=== PATIENT | female | born 1990 | race Caucasian/White ===

== ENCOUNTER 2016-08-09 13:21 | Emergency (ER) | payer OTHER ==
[2016-08-09 15:07] VITALS: BP 138/87; PULSE 106; RESP 16; TEMP 99; O2SAT 95
--- NOTE | 2016-08-09 15:44 | UCPHY ---
H & P Patient Type: Established Smoking Status: Never smoked Time Seen by Provider: 08/09/16 15:38 HPI/ROS: CHIEF COMPLAINT: Sore throat times 24 hours HISTORY OF PRESENT ILLNESS: 25-year-old immunocompetent female with prior remote history of peritonsillar abscess complaining of 24 hours of sore throat bilaterally enlarged tonsils. No trismus no drooling. No change in voice. No fever no chills. No rash. No abdominal pain. No chest pain. No dyspnea. PRIMARY CARE PROVIDER: REVIEW OF SYSTEMS: A ten point review of systems was performed and is negative with the exception of the items mentioned in the HPI PAST MEDICAL & SURGICAL HISTORY: Remote history of peritonsillar abscess SOCIAL HISTORY: Nonsmoker PHYSICAL EXAM (Prior to examination, patient consented to physical exam, hands were washed and my usual and customary physical exam procedures followed) 1) GENERAL: Well-developed, well-nourished, alert and oriented. Appears nontoxic 2) HEAD: Normocephalic, atraumatic 3) HEENT: Pupils equal, round, reactive to light bilaterally. Sclera anicteric. Bilateral tonsils are enlarged with white exudate bilaterally. Tonsils are symmetrical with no pointing of the uvula. No trismus no drooling. Floor of mouth soft. Ears bilaterally with normal tympanic membranes. 4) NECK: Full range of motion, no meningeal signs. Positive submandibular adenopathy bilaterally 5) LUNGS: Clear auscultation bilaterally, no wheezes, no rhonchi, no retractions. 6) HEART: Regular rate and rhythm, no murmur, no heave, no gallop. 7) ABDOMEN: No guarding, no rebound, no focal tenderness, negative McBurney's, 8) MUSCULOSKELETAL: Moving all extremities, no focal areas of tenderness, no obvious trauma. No peripheral edema or discoloration. 9) BACK: No CVA tenderness 10) SKIN: No rash, no petechiae. 11) Psychiatric: Patient is oriented X 3, there is no agitation. DIFFERENTIAL DIAGNOSIS: In no particular order including but not limited to peritonsillar abscess, strep pharyngitis, meningitis, retropharyngeal abscess or phlegmon (Yolanda,D Shanta) Constitutional: Initial Vital Signs Temperature (C) 37.2 C 08/09/16 15:04 Heart Rate 106 H 08/09/16 15:04 Respiratory Rate 16 08/09/16 15:04 Blood Pressure 138/87 H 08/09/16 15:04 O2 Sat (%) 95 08/09/16 15:04 O2 Delivery Mode Room Air Allergies/Adverse Reactions: No Known Allergies Allergy (Verified 08/09/16 15:03) Home Medications: Medication Instructions Recorded Penicillin V Potassium [Pen Vk] 500 mg PO Q6 10 Days 08/09/16 methylPREDNISolone [Medrol Dose 4 mg PO DAILY #1 ea 08/09/16 Raulito] MDM/Departure - MDM ED Course/Re-evaluation: I do not think this patient has peritonsillar abscess. High clinical suspicion for strep pharyngitis. Recommended empiric treatment. No prior adverse reaction to steroids. Started on Medrol Dosepak, antibiotic, follow up with ENT on Thursday (today is Thursday). Usual and customary strict return precautions provided. She feels comfortable being discharged. (Sariah Guerrero) Urgent Care PA supervision Physician documentation: The patient was evaluated and managed by the physician assistant federal public defender. My co- signature indicates that I have reviewed this chart and I agree with the findings and plan of care as documented. I am the secondary supervising physician. (Devon Latham) - Depart Disposition: Home, Routine, Self-Care Clinical Impression: Strep pharyngitis Instructions: Strep Throat (ED) Additional Instructions: Return to the ER immediately if you cannot swallow, have drooling, fevers, neck stiffness, cannot open your jaw, or any other symptoms that concern you. Prescriptions: methylPREDNISolone [Medrol Dose Raulito] 4 mg PO DAILY #1 ea Penicillin V Potassium [Pen Vk] 500 mg PO Q6 10 Days Referrals: Magan Mariano MD [Medical Doctor] - 08/11/16 (Dr. Magan Mariano is an ear nose and throat doctor) - PQRS PQRS Measurement: Not applicable (Sariah Guerrero)
== END 2016-08-09 15:58 | disposition home or self-care (01) ==
LOC: CED 13:21
DX: J02.9 Acute pharyngitis, unspecified (principal); J35.1 Hypertrophy of tonsils
CPT/HCPCS: 87880-PO; 99214-PO; G0463-PO